=== PATIENT | female | born 1960 | race Caucasian/White ===

== ENCOUNTER 2017-11-12 15:58 | Emergency (ER) | payer OTHER ==
[~2017-11-12] VITALS: Ht 172.7 cm; Wt 72.6 kg
[~2017-11-12 15:58] MED LIST: ADVAIR DISKU 11 UNIT INH; BENADRYL ALLERG25 MG PO; MUCINEX600 MG PO; OMEPRAZOLE40 MG PO; PEPCID20 MG PO; PRILOSEC 20MG C20 MG PO; ZITHROMAX Z PA250 MG PO
[2017-11-12 16:26] VITALS: BP 142/86
[2017-11-12] MEDS ORDERED: FLONASE ALLERG9.9 ML NAS (16:33)
[2017-11-12] MEDS ORDERED: MEDROL4 M2 PO (16:33)
[2017-11-12] MEDS ORDERED: ALBUTEROL1.25 MG/1 INH/SOL (16:33)
[2017-11-12] MEDS ORDERED: ZITHROMAX500 M2 PO (16:34)
--- NOTE | 2017-11-12 16:36 | ED INFLUENZA/URI COMPLAINT ---
History of Present Illness General Chief Complaint: General Adult Stated Complaint: C/O OF SOB HX OF ASTHMA; DX WITH FLU THIS AM; Source: patient Exam Limitations: no limitations Vital Signs & Intake/Output Vital Signs & Intake/Output Vital Signs Date Time Temp Pulse Resp B/P B/P Pulse O2 O2 Flow FiO2 Mean Ox Delivery Rate 11/12 1645 92 Room Air Room Air 11/12 1626 98.0 113 18 142/86 92 Room Air Room Air Allergies Coded Allergies: MDX - Cephalexin (CEPHALEXIN) (Intermediate, RASH REDNESS 06/25/15) MDX - Penicillin (PENICILLIN) (UNKNOWN 06/25/15) Reconcile Medications Albuterol Sulfate 1.25 MG/3 ML VIAL.NEB 1 Vial INH/ANISH Q4-6 PRN INFLAMMATION Azithromycin (Zithromax Z Pack) 250 MG TAB 0 PO SEE ADMIN CRITERIA dental caries 2 tabs day 1 then 1 tab daily for 4 days Azithromycin (Zithromax) 500 MG TABLET 1 TAB PO DAILY BRONCHITIS DIPHENHYDRAMINE HCL (Benadryl Allergy) 25 MG TAB 1-2 TAB PO Q6P PRN itchy rash Famotidine (Pepcid) 20 MG TAB 1 TAB PO BID allergy Fluticasone Propionate (Flonase Allergy Relief) 50 MCG/ACTUATION SPRAY.SUSP 2 SPRAY DALE DAILY PRN CONGESTION Fluticasone-Salmeterol (Advair 100-50 Diskus) 100 MCG-50 MCG/DOSE BLST.W.DEV 1 PUF INH BID ASTHMA (Reported) 04/14/2014 1000 Guaifenesin (Mucinex) [address] 1 TAB PO BID PRN CONGESTION (Reported) Levofloxacin (Levaquin) 500 MG TABLET 1 TAB PO DAILY PRN BRONCHITIS Methylprednisolone. (Medrol) 4 MG TAB.DS.PK 1 DP PO AD INFLAMMATION 6 on day 1 then reduce by one tablet daily until gone Omeprazole 40 MG CAPSULE. 1 CAP PO DAILY HEART BURN Triage Note: TRIAGE: 57 Y/O FEMALE PRESENTS C/O DIAGNOSED WITH FLU THIS MORNING. SPO2 92% IN TRIAGE. HISTORY OF WPW AND ASTHMA. * SEEN BY ERIKA GARCIA IN TRIAGE. Triage Nurses Notes Reviewed? yes Onset: Gradual Duration: constant Timing: recent history Severity: moderate Severity Numbers: 5 Prior Episodes/Possible Cause: no prior episodes HPI: Patient is a 57-year-old female with a past medical history of asthma who presents emergency with a one-day history of nonproductive cough NASAL congestion generalized weakness fatigue body aches and chills who was diagnosed earlier at an urgent care facility with positive influenza however patient was not prescribed her albuterol nebulizer vials and patient is noting mild wheezing (Wilder Goins) Past History Travel History Traveled to [place] past 21 day No Medical History Any Pertinent Medical History? see below for history Cardiovascular: WPW Respiratory: asthma Surgical History Surgical History: non-contributory, N Psychosocial History Who do you live with Daughter Services at Home None What is your primary language Andorran Tobacco Use: Never used ETOH Use: occasional use Illicit Drug Use: denies illicit drug use Family History Family History, If Any: MOTHER FH: colon cancer FATHER FHx: bladder cancer BROTHER FH: premature ventricular contractions Hx Contributory? No (Wilder Goins) Review of Systems Review of Systems Constitutional: Reports: see HPI, chills. EENTM: Reports: see HPI. Respiratory: Reports: see HPI, cough. Cardiovascular: Reports: no symptoms. GI: Reports: no symptoms. Genitourinary: Reports: no symptoms. Musculoskeletal: Reports: no symptoms. Skin: Reports: no symptoms. Neurological/Psychological: Reports: see HPI. Hematologic/Endocrine: Reports: no symptoms. Immunologic/Allergic: Reports: no symptoms. All Other Systems: Reviewed and Negative (Wilder Goins) Physical Exam Physical Exam General Appearance: no apparent distress, alert, comfortable Head: atraumatic Eyes: Bilateral: normal appearance, PERRL. Ears, Nose, Throat: moist mucous membrane, hearing grossly normal, Tympanic normal, pharynx normal, nasal congestion Neck: normal inspection Respiratory: chest non-tender, no respiratory distress, wheezing Cardiovascular: regular rate/rhythm Peripheral Pulses: 2+ radial (R) Gastrointestinal: normal bowel sounds, soft, non-tender Extremities: normal inspection, normal capillary refill Neurologic/Psych: no motor/sensory deficits, awake Skin: intact, normal color, warm/dry Core Measures Sepsis Present: No Sepsis Focused Exam Completed? No (Wilder Goins) Progress Differential Diagnosis: influenza, meningitis, neutropenia, otitis, pneumonia, pharyngitis, sinusitis Plan of Care: Patient on initial examination was in no apparent distress resting compilation no respiratory distress afebrile patient was evaluated in the triage room with patient does have noted bilateral mild expiratory wheezing she was offered a breathing treatment however due to the capacity to emergency room patient would have to wait and go back to the waiting room however she requested to have her prescription refill of her albuterol vials for her nebulizer machine at home where she requested this treatment at home. Upon discharge patient looks well no apparent distress patient was afebrile nontoxic appearing and 93% room air no respiratory distress. Initial ED EKG: none (Wilder Goins) Departure Departure Disposition: HOME OR SELF CARE Condition: Stable Clinical Impression Primary Impression: Influenza Secondary Impressions: Asthma Referrals: Madison BRAUN,Mary (PCP/Family) Additional Instructions: As discussed continue your previously prescribed Tamiflu Tessalon Perles and antihistamines begin the prescription of albuterol vials for nebulizer treatments begin the prescription of Medrol Dosepak tomorrow as you've received prednisone in the emergency room today, begin the prescription of Flonase for congestion begin [id number] Sudafed for congestion per prescription is waiting at [facility]. If symptoms worsen return to emergency room. If no better in 2 days follow-up with her primary care doctor Departure Forms: Customer Survey General Discharge Information Prescriptions: Current Visit Scripts Albuterol Sulfate 1 Vial INH/ANISH Q4-6 PRN INFLAMMATION #150 ML Fluticasone Propionate (Flonase Allergy Relief) 2 SPRAY DALE DAILY PRN CONGESTION #1 BOT Methylprednisolone. (Medrol) 1 DP PO AD #1 DP 6 on day 1 then reduce by one tablet daily until gone Azithromycin (Zithromax) 1 TAB PO DAILY #5 TAB Levofloxacin (Levaquin) 1 TAB PO DAILY PRN BRONCHITIS #7 TAB (Wilder Goins) PA/CASH MANAGEMENT COORDINATOR Co-Sign Statement Statement: ED Attending supervision documentation- I saw and evaluated the patient. I have also reviewed all the pertinent lab results and diagnostic results. I agree with the findings and the plan of care as documented in the PA's/CASH MANAGEMENT COORDINATOR's documentation. x I have reviewed the ED Record and agree with the PA's/CASH MANAGEMENT COORDINATOR's documentation. [] Additions or exceptions (if any) to the PAs/CASH MANAGEMENT COORDINATOR's note and plan are summarized below: [] (Alda BRAUN,Moy)
[2017-11-12] MEDS ORDERED: LEVAQUIN500 M1 PO (16:40)
== END 2017-11-12 16:46 ==
LOC: ERH 15:58
DX: J11.1 Influenza due to unidentified influenza virus with other respiratory manifestations (principal); J45.909 Unspecified asthma, uncomplicated

== ENCOUNTER 2017-11-13 03:47 | Emergency (ER) | payer OTHER ==
[~2017-11-13] VITALS: Ht 172.7 cm; Wt 72.6 kg
[~2017-11-13 03:47] MED LIST changes: +ALBUTEROL1.25 MG/1 INH/SOL; +FLONASE ALLERG9.9 ML NAS; +LEVAQUIN500 M1 PO; +MEDROL4 M2 PO; +ZITHROMAX500 M2 PO
--- NOTE | 2017-11-13 03:55 | ED DYSPNEA/ASTHMA COMPLAINT ---
History of Present Illness General Chief Complaint: Dyspnea (COPD, CHF, Other) Stated Complaint: DX WITH FLU YEST, SOB NO RELIEF Source: patient, family Exam Limitations: no limitations Vital Signs & Intake/Output Vital Signs & Intake/Output Vital Signs Date Time Temp Pulse Resp B/P B/P Pulse O2 O2 Flow FiO2 Mean Ox Delivery Rate 11/13 0459 98.6 84 20 124/82 100 Room Air 11/13 0356 95 Room Air 11/13 0353 96.9 114 18 130/86 95 Room Air Allergies Coded Allergies: MDX - Cephalexin (CEPHALEXIN) (Intermediate, RASH REDNESS 06/25/15) MDX - Penicillin (PENICILLIN) (UNKNOWN 06/25/15) Reconcile Medications Albuterol Sulfate 1.25 MG/3 ML VIAL.NEB 1 Vial INH/ANISH Q4-6 PRN INFLAMMATION Azithromycin (Zithromax Z Pack) 250 MG TAB 0 PO SEE ADMIN CRITERIA dental caries 2 tabs day 1 then 1 tab daily for 4 days Azithromycin (Zithromax) 500 MG TABLET 1 TAB PO DAILY BRONCHITIS DIPHENHYDRAMINE HCL (Benadryl Allergy) 25 MG TAB 1-2 TAB PO Q6P PRN itchy rash Famotidine (Pepcid) 20 MG TAB 1 TAB PO BID allergy Fluticasone Propionate (Flonase Allergy Relief) 50 MCG/ACTUATION SPRAY.SUSP 2 SPRAY DALE DAILY PRN CONGESTION Fluticasone-Salmeterol (Advair 100-50 Diskus) 100 MCG-50 MCG/DOSE BLST.W.DEV 1 PUF INH BID ASTHMA (Reported) 04/14/2014 1000 Guaifenesin (Mucinex) [address] 1 TAB PO BID PRN CONGESTION (Reported) Levofloxacin (Levaquin) 500 MG TABLET 1 TAB PO DAILY PRN BRONCHITIS Methylprednisolone. (Medrol) 4 MG TAB.DS.PK 1 DP PO AD INFLAMMATION 6 on day 1 then reduce by one tablet daily until gone Omeprazole 40 MG CAPSULE.DR 1 CAP PO DAILY HEART BURN Triage Nurses Notes Reviewed? yes Onset: Gradual Duration: day(s): Timing: recent history Severity: moderate Activities at Onset: none Prior Episodes/Possible Cause: occasional episodes Modifying Factors: Improves With: rest. Associated Symptoms: cough, with phlegm HPI: 57 yo woman h/o asthma, presents with cough with phlegm. She was diagnosed with influenza at an urgent care center. She started tamiflu and then continued to cough. She then came to ED who prescribed levaquin, steroids, and albuterol. She has not yet started the levaquin. She continues to cough and had a temp of 99.9 this morning. "I'm just so worried that I might have pneumonia." She has no shortness of breath, dizziness, chest pain. She is otherwise well. Past History Travel History Traveled to [place] past 21 day No Medical History Any Pertinent Medical History? see below for history Cardiovascular: LBBB Respiratory: asthma Surgical History Surgical History: non-contributory, N Psychosocial History Who do you live with Daughter Services at Home None What is your primary language Argentine Tobacco Use: Quit >30 days ago Family History Family History, If Any: MOTHER FH: colon cancer FATHER FHx: bladder cancer BROTHER FH: premature ventricular contractions Hx Contributory? No Review of Systems Review of Systems Constitutional: Reports: no symptoms. EENTM: Reports: no symptoms. Respiratory: Reports: no symptoms. Cardiovascular: Reports: no symptoms. GI: Reports: no symptoms. Genitourinary: Reports: no symptoms. Musculoskeletal: Reports: no symptoms. Skin: Reports: no symptoms. Neurological/Psychological: Reports: no symptoms. Hematologic/Endocrine: Reports: no symptoms. Immunologic/Allergic: Reports: no symptoms. All Other Systems: Reviewed and Negative Physical Exam Physical Exam General Appearance: well developed/nourished, no apparent distress Head: atraumatic, normal appearance Eyes: Bilateral: normal appearance. Ears, Nose, Throat: normal pharynx, normal ENT inspection Neck: normal inspection, supple, full range of motion Respiratory: normal breath sounds, chest non-tender, no respiratory distress, quiet respiration, lungs clear Cardiovascular: regular rate/rhythm Gastrointestinal: normal bowel sounds, soft, non-tender, no organomegaly Extremities: normal inspection Neurologic/Psych: no motor/sensory deficits, awake, alert, oriented x 3 Skin: intact, normal color, warm/dry Core Measures ACS in differential dx? No CVA/TIA Diagnosis No Sepsis Present: No Sepsis Focused Exam Completed? No Progress Differential Diagnosis: asthma, bronchitis, COPD, pneumonia Plan of Care: Orders Procedure Date/time Status XRY-CHEST XRAY, TWO VIEWS 11/13 1271 Active Diagnostic Imaging: Viewed by Me: Radiology Read. Discussed w/RAD: Radiology Read. CXR Impression: no acute abnormality, no infiltrates, normal size heart, normal mediastinum, PATIENT: REBECCA URBINA PRESENT AGE: 57 PATIENT ACCOUNT NO: [id number] : 61 LOCATION: [facility] ORDERING PHYSICIAN: David Rascon MD SERVICE DATE: 11/13/17 EXAM TYPE: RAD - XRY- CHEST XRAY, TWO VIEWS EXAMINATION: XR CHEST CLINICAL INFORMATION: Dyspnea COMPARISON: 04/13/2014 TECHNIQUE: 2 views of the chest were obtained. FINDINGS: The lungs are well expanded. There is no focal consolidation, edema, or effusion. No pneumothorax. The cardiomediastinal silhouette is within normal limits. No acute osseous abnormality. IMPRESSION: No acute pulmonary findings. DICTATED BY: Jaime Medeiros MD DATE/TIME DICTATED:11/13/17428 [employer]EL[employer]:ROSE DATE/TIME TRANSCRIBED:11/13/17428 CONFIDENTIAL, DO NOT COPY WITHOUT APPROPRIATE AUTHORIZATION. <Electronically signed in Other Vendor System> SIGNED BY: Jaime Medeiros MD 11/13/17432 Initial ED EKG: none Departure Departure Disposition: HOME OR SELF CARE Condition: Stable Clinical Impression Primary Impression: Influenza Secondary Impressions: Bronchitis Referrals: Madison BRAUN,Mary (PCP/Family) Departure Forms: Customer Survey General Discharge Information Comments 11/13/17, 4:55am... pt stable and comfortable in the ED... cxr benign... pt feels comfortable going home and will start the rx for levaquin given to her yesterday and also continue the tamiflu. Critical Care Note Critical Care Note Critical Care Time: non-applicable
--- NOTE | 2017-11-13 04:33 | RADIOLOGY REPORT ---
EXAMINATION: XR CHEST CLINICAL INFORMATION: Dyspnea COMPARISON: 04/13/2014 TECHNIQUE: 2 views of the chest were obtained. FINDINGS: The lungs are well expanded. There is no focal consolidation, edema, or effusion. No pneumothorax. The cardiomediastinal silhouette is within normal limits. No acute osseous abnormality. IMPRESSION: No acute pulmonary findings.
[2017-11-13 04:59] VITALS: BP 124/82
== END 2017-11-13 04:59 ==
LOC: ERH 03:47
DX: J11.1 Influenza due to unidentified influenza virus with other respiratory manifestations (principal); J40 Bronchitis, not specified as acute or chronic; Z87.891 Personal history of nicotine dependence
CPT/HCPCS: 71046